=== PATIENT | male | born 1980 | race Caucasian/White ===

== ENCOUNTER 2023-02-23 15:34 | Inpatient (IN) | payer OTHER ==
[~2023-02-23] VITALS: Ht 170.2 cm; Wt 77.1 kg
== END 2023-02-25 13:10 | disposition home or self-care (01) | DRG 392 ==
LOC: ER 15:34 → MEDI 20:12
PROVIDERS: ADMIT Internal Medicine; ATTEND Internal Medicine
PROC: BW21ZZZ Computerized Tomography (CT Scan) of Abdomen and Pelvis (ICD-10-PCS; principal; 2023-02-23)
DX: K57.32 Diverticulitis of large intestine without perforation or abscess without bleeding (principal); R10.32 Left lower quadrant pain; Z90.49 Acquired absence of other specified parts of digestive tract